=== PATIENT | male | born 1985 | race African-American/Black ===

== ENCOUNTER 2017-06-30 08:17 | Emergency (ER) | payer OTHER ==
[2017-06-30 08:27] VITALS: BP 131/70; PULSE 78; TEMP 98.7; BMI 27.0
--- NOTE | 2017-06-30 08:50 | PDOC ---
History of Present Illness - General Chief Complaint: Back Pain Stated Complaint: BACK PAIN Time Seen by Provider: 06/30/17 08:40 History Source: Patient Exam Limitations: No Limitations - History of Present Illness Initial Comments: 06/30/17 08:50 Patient came to emergency department for evaluation of acute exacerbation of chronic back pain. Patient was injured in the service some years ago with multiple testings and MRIs that does not reveal any disc injury however states his significant spasm. Is currently involved with Dr. Bourgeois, pain management program. Has appointment for neurosurgery evaluation on the . States has been sleeping on the couch and on the floor and feels may have re- exacerbated worsened pain. 06/30/17 08:54 06/30/17 10:46 Occurred: reports: yesterday Severity: reports: moderate Pain Location: reports: back Method of Injury: Yes: unknown Loss of Consciousness: no loss of consciousness Associated Symptoms (Fall): denies symptoms Past History - Travel Traveled outside of the country in the last 30 days: No Close contact w/someone who was outside of country & ill: No - Past Medical History Allergies/Adverse Reactions: Allergies Allergy/AdvReac Type Severity Reaction Status Date / Time No Known Allergies Allergy Verified 06/30/17 08:26 Home Medications: Ambulatory Orders Prednisone [Deltasone -] 20 mg PO BID #8 tablet 06/30/17 Other medical history: BACK INJURY , PTSD, R EAR HEARING LOSS. - Psycho/Social/Smoking Cessation Hx Anxiety: No Suicidal Ideation: No Smoking History: Never smoked Hx Alcohol Use: No Drug/Substance Use Hx: No Substance Use Type: None Trauma Specific PMHX - Complaint Specific PMHX Back Injury: Yes Neck Injury: Yes (years ago while in service ) Review of Systems - Review of Systems Able to Perform ROS?: Yes Is the patient limited [place]ar[place]uan proficient: Yes Constitutional: Yes: Symptoms Reported, See HPI, Malaise. No: Fever, Loss of Appetite HEENTM: Yes: See HPI. No: Symptoms Reported Musculoskeletal: Yes: Symptoms Reported, See HPI, Back Pain, Joint Pain, Muscle Pain All Other Systems: Reviewed and Negative *Physical Exam - Vital Signs Last Vital Signs Temp Pulse Resp BP Pulse Ox 98.7 F 78 20 131/70 99 06/30/17 08:23 06/30/17 08:23 06/30/17 08:23 06/30/17 08:23 06/30/17 08:23 - Physical Exam General Appearance: Yes: Nourished, Appropriately Dressed, Apparent Distress HEENT: positive: EOMI, JESÚS, Normal ENT Inspection, TMs Normal, Pharynx Normal Neck: positive: Supple. negative: Tender Respiratory/Chest: positive: Lungs Clear, Normal Breath Sounds Cardiovascular: positive: Regular Rhythm Musculoskeletal: positive: Normal Inspection, Decreased Range of Motion, Muscle Spasm (palpable spasm and tenderness to mid thoracic spine extending into lumbar spine. Has no true bone tenderness, but walks with the sting to the right due to the spasm.). negative: CVA Tenderness, Vertebral Tenderness Extremity: positive: Normal Capillary Refill Integumentary: positive: Normal Color, Dry, Warm. negative: Rash Neurologic: positive: film rental clerk II-XII NML intact, Fully Oriented, Alert, Normal Mood/ Affect, Normal Response, Motor Strength 5/5 Progress Note - Progress Note Progress Note: Acute on chronic low back pain. Patient with palpable spasm. We'll add prednisone for anti-inflammatory purpose. Patient understands is difficult for any stronger pain medication due to his psychiatric medications. Understands will follow up with neurosurgeon on Sunday as scheduled *DC/Admit/Observation/Transfer Diagnosis at time of Disposition: Spasm of back muscles - Discharge Dispostion Disposition: HOME Condition at time of disposition: Stable Admit: No - Prescriptions Prescriptions: Prednisone [Deltasone -] 20 mg PO BID #8 tablet - Referrals Referrals: Vimal Alcocer MD [Primary Care Provider] - - Patient Instructions Printed Discharge Instructions: DI for Back Strain or Sprain Additional Instructions: Rest, no heavy lifting or exercise until pain is resolved Hot soaks to neck and low back as often as possible/hot showers or Jacuzzis No massage or therapy until spasm is gone Continue ibuprofen 2-200 mg tablets every 6 hours for the next 3 days then as needed for pain and swelling Prednisone 40 mg daily for the next 4 days Cyclobenzaprine 1-10mg every 8 hours as needed for spasm If not significant improvement within 24 hours with medication and rest regime, followup with private physician for change in medications and /or therapy.
[2017-06-30] MEDS ORDERED: IBUPROFEN 600 MG TABLET (FP) PO ONE (08:53)
[2017-06-30] MEDS ORDERED: predniSONE 20 MG TABLET (UD) PO ONE (08:53)
== END 2017-06-30 09:03 | disposition home or self-care (01) ==
LOC: JERFT 08:17
DX: M62.830 Muscle spasm of back (principal)
CPT/HCPCS: 99281-25

== ENCOUNTER 2019-06-11 23:31 | Emergency (ER) | payer OTHER ==
[2019-06-11 23:53] VITALS: BP 130/70; PULSE 71; TEMP 98.2; BMI 26.6
[2019-06-12 00:11] LABS: HYALINE CASTS 13 /lpf (0-8); URINE APPEARANCE CLEAR; URINE BACTERIA 2.4 /hpf (NEGATIVE); URINE BILIRUBIN NEGATIVE (NEGATIVE); URINE COLOR YELLOW; URINE GLUCOSE (UA) NEGATIVE (NEGATIVE); URINE KETONE NEGATIVE (NEGATIVE); URINE LEUK ESTERASE 1+ (NEGATIVE); URINE NITRITE NEGATIVE (NEGATIVE); URINE PROTEIN NEGATIVE (NEGATIVE); URINE RBC 2 /hpf (0-4); URINE UROBILINOGEN 0.2 mg/dL (0.2-1.0); URINE WBC 28 /hpf (0-5)
--- NOTE | 2019-06-12 00:48 | PDOC ---
Attending Attestation - Resident Resident Name: Gregory Doshi - ED Attending Attestation I have performed the following: I have examined & evaluated the patient, The case was reviewed & discussed with the resident, I agree w/resident's findings & plan - HPI HPI: 06/12/19 01:44 see resident hpi - Physicial Exam PE: 06/12/19 01:44 agree with resident exam - Medical Decision Making 06/12/19 01:44 34 yo male wih penile d/c and unprotected sexual contact no testicular pain rocephin/azithromycin d/c
[2019-06-12] MEDS ORDERED: AZITHROMYCIN 500 MG TABLET PO ONE (01:01)
--- NOTE | 2019-06-12 01:14 | PDOC ---
History of Present Illness - General Chief Complaint: Penile Drainage Stated Complaint: penile discharge Time Seen by Provider: 06/12/19 00:47 History Source: Patient Exam Limitations: No Limitations - History of Present Illness Initial Comments: 06/12/19 01:09 34M w/ pmh of PTSD, ruptured Right ACL presents to [facility] for increased "white" penile discharge w/a urethral tenderness x2-3d. Has had prior h/o penile discharge which was subsequently treated with two pills which he does recall. Has had a new nonmonogamous female sexual partner, had a broken condom. Denies F /C, MAYS, itchy eyes, urethral sx. [facility] Associated Symptoms: denies: chest pain, cough, diaphoresis, fever/chills, headaches, nausea/vomiting, shortness of breath Past History - Travel Traveled outside of the country in the last 30 days: No Close contact w/someone who was outside of country & ill: No - Past Medical History Allergies/Adverse Reactions: Allergies Allergy/AdvReac Type Severity Reaction Status Date / Time No Known Allergies Allergy Verified 06/11/19 23:51 Home Medications: Ambulatory Orders Cyclobenzaprine HCl [Flexeril -] 10 mg PO TID 06/08/18 Gabapentin 300 mg PO TID 06/08/18 Loperamide HCl [Imodium A-D] 2 mg PO UTDICT 3 Days #12 tablet 06/08/18 Nebivolol HCl [Bystolic] 5 mg PO DAILY 06/08/18 Sertraline HCl [Zoloft] 100 mg PO DAILY 06/08/18 COPD: No Diabetes: No Psychiatric Problems: Yes - Surgical History Comments:: 06/12/19 01:14 - repair of Right ACL - Family Disease History Comment:: 06/12/19 01:14 - no h/o of chronic diseases in family - Immunization History Immunization Up to Date: Yes - Suicide/Smoking/Psychosocial Hx Smoking History: Never smoked Have you smoked in the past 12 months: No Information on smoking cessation initiated: No Hx Alcohol Use: Yes (social) Drug/Substance Use Hx: No Substance Use Type: None Review of Systems - Review of Systems Able to Perform ROS?: Yes Is the patient limited Barbadian proficient: No Constitutional: No: Chills, Fever, Weakness HEENTM: No: Eye Pain, Blurred Vision, Double Vision Respiratory: Yes: Cough (cough w/ allergy excerabation). No: Orthopnea, Shortness of Breath, Stridor, Wheezing Cardiac (ROS): No: Chest Pain, Irregular Heart Rate, Palpitations ABD/GI: No: Constipated, Diarrhea, Nausea, Vomiting : Yes: Discharge ("white" clear). No: Testicular Swelling Musculoskeletal: Yes: Other (abnormal gait) Neurological: No: Headache, Numbness *Physical Exam - Vital Signs Last Vital Signs Temp Pulse Resp BP Pulse Ox 98.2 F 71 20 130/70 100 06/11/19 23:52 06/11/19 23:52 06/11/19 23:52 06/11/19 23:52 06/11/19 23:52 - Physical Exam General Appearance: Yes: Nourished. No: Apparent Distress HEENT: negative: Scleral Icterus (R), Scleral Icterus (L) Neck: positive: Trachea midline, Supple. negative: Lymphadenopathy (R), Lymphadenopathy (L) Respiratory/Chest: positive: Lungs Clear, Normal Breath Sounds. negative: Respiratory Distress, Labored Respiration Cardiovascular: positive: Regular Rate, S1, S2 Gastrointestinal/Abdominal: positive: Soft. negative: Guarding, Rebound, Tenderness Male Genitalia: positive: discharge (mucoid urethral discharge), other (Left inguinal LAD ~1.5cm, nonTTP; enlarged Left epididymus <1cm). negative: epididymus tender Musculoskeletal: negative: CVA Tenderness Extremity: negative: Calf Tenderness Integumentary: positive: Dry, Warm Neurologic: positive: Fully Oriented, Alert ED Treatment Course - ADDITIONAL ORDERS Additional order review: Laboratory Results 06/11/19 23:40 Urine Color Yellow Urine Appearance Clear Urine pH 6.0 Ur Specific [place] 1.026 Urine Protein Negative Urine Glucose (UA) Negative Urine Ketones Negative Urine Blood Negative Urine Nitrite Negative Urine Bilirubin Negative Urine Urobilinogen 0.2 Ur Leukocyte Esterase 1+ H Urine WBC (Auto) 28 Urine RBC (Auto) 2 Urine Casts (Auto) 13 U Epithel Cells (Auto) 1.0 Urine Bacteria (Auto) 2.4 Medical Decision Making - Medical Decision Making 06/12/19 01:21 Left groin LAD, mucoid discharge; suspicious for STD. Will test and treat empirically. Patient explained that test results will return in ~3days. - administer azithromycin 1g PO, ceftriaxon 250mg IM - will discharge after administration of medications *DC/Admit/Observation/Transfer Diagnosis at time of Disposition: Sexually transmissible disease - Discharge Dispostion Disposition: HOME Condition at time of disposition: Stable Decision to Admit order: No - Referrals - Patient Instructions Printed Discharge Instructions: Facts About Sexually Transmitted Infections, DI for Chlamydia Additional Instructions: You were evaluated for penile discharge. Physical examination was suspicious for an infection, likely a sexually transmitted infection. You were treated with azithromycin 1000mg PO, and ceftriaxone 250mg IM. Please return to the ED if you experience: - severe increasing penile pain - inability to urination with lower abdominal pain - measured fever of Temperature > 100.3F - Post Discharge Activity
[2019-06-12] MEDS ORDERED: cefTRIAXone SODIUM 1 GM VIAL ONE (01:25)
[2019-06-12] MEDS ORDERED: LIDOCAINE HCL 1%, 10 MG/ML (20ML VIAL) ONE (01:25)
[2019-06-12] MEDS ORDERED: AZITHROMYCIN 250 MG TABLET ONE (01:25)
== END 2019-06-12 01:50 | disposition home or self-care (01) ==
LOC: JER 23:31
DX: A64 Unspecified sexually transmitted disease (principal); F43.10 Post-traumatic stress disorder, unspecified
CPT/HCPCS: 36415; 81003; 87086; 87491; 87591; 99282-25